=== PATIENT | male | born 1980 | race African-American/Black ===

== ENCOUNTER 2018-02-10 14:44 | Emergency (ER) | payer MEDICAID ==
[~2018-02-10 14:44] MED LIST: CITA10TA13 PO; OLAN15TA5 PO; OMEP20CA4 PO
== END 2018-02-10 15:49 | disposition left against medical advice (07) ==
LOC: EMS 14:44
DX: Z53.21 Procedure and treatment not carried out due to patient leaving prior to being seen by health care provider (principal)

== ENCOUNTER 2018-02-20 13:10 | Emergency (ER) | payer OTHER ==
[~2018-02-20] VITALS: Ht 180.3 cm; Wt 144.6 kg
[2018-02-20 16:02] VITALS: BP 152/89
[2018-02-22 07:27] LABS: HIV 1-2 SCREEN 4TH GEN W/RFLX Non Reactive (Non Reactive)
== END 2018-02-20 16:20 | disposition home or self-care (01) ==
LOC: EMS 13:10
DX: N50.9 Disorder of male genital organs, unspecified (principal); F19.10 Other psychoactive substance abuse, uncomplicated; L98.9 Disorder of the skin and subcutaneous tissue, unspecified; F17.210 Nicotine dependence, cigarettes, uncomplicated; K21.9 Gastro-esophageal reflux disease without esophagitis; F12.90 Cannabis use, unspecified, uncomplicated; F16.90 Hallucinogen use, unspecified, uncomplicated
CPT/HCPCS: 86592; 87389; 87491; 87591; 99284; 99406

== ENCOUNTER 2020-07-24 00:17 | Emergency (ER) | payer MEDICARE, OTHER ==
[~2020-07-24] VITALS: Ht 177.8 cm; Wt 100.0 kg
[2020-07-24] MEDS ORDERED: ALBU8HFA IH (00:23)
[2020-07-24] MEDS ORDERED: ONDANSETRON HCL 4 MG TABLET PO ONE (01:15)
[2020-07-24 01:16] VITALS: BP 137/88
== END 2020-07-24 01:41 | disposition home or self-care (01) ==
LOC: EMS 00:17
DX: R11.2 Nausea with vomiting, unspecified (principal); R06.02 Shortness of breath; F32.9 Major depressive disorder, single episode, unspecified; K21.9 Gastro-esophageal reflux disease without esophagitis; F12.90 Cannabis use, unspecified, uncomplicated; F17.210 Nicotine dependence, cigarettes, uncomplicated
CPT/HCPCS: 99283; Q0162

== ENCOUNTER 2020-10-20 01:45 | Emergency (ER) | payer MEDICARE, OTHER ==
[~2020-10-20] VITALS: Ht 182.9 cm; Wt 100.0 kg
[~2020-10-20 01:45] MED LIST changes: +ALBU8HFA IH
[2020-10-20 01:48] VITALS: BP 136/105
== END 2020-10-20 02:30 | disposition left against medical advice (07) ==
LOC: EMS 01:59
DX: R11.2 Nausea with vomiting, unspecified (principal); Z53.21 Procedure and treatment not carried out due to patient leaving prior to being seen by health care provider

== ENCOUNTER 2020-10-27 14:54 | Emergency (ER) | payer MEDICARE, OTHER ==
[~2020-10-27] VITALS: Ht 182.9 cm; Wt 100.0 kg
[2020-10-27] MEDS ORDERED: ACET-2080 PO (15:38)
[2020-10-27] MEDS ORDERED: ACETAMINOPHEN 500 MG TABLET PO ONE (15:45)
[2020-10-27 17:35] VITALS: BP 135/79
== END 2020-10-27 18:10 | disposition home or self-care (01) ==
LOC: EMS 14:54
DX: S63.502A Unspecified sprain of left wrist, initial encounter (principal); F32.9 Major depressive disorder, single episode, unspecified; K21.9 Gastro-esophageal reflux disease without esophagitis; F17.210 Nicotine dependence, cigarettes, uncomplicated; F12.90 Cannabis use, unspecified, uncomplicated; Y35.811A Legal intervention involving manhandling, law enforcement official injured, initial encounter; Y93.89 Activity, other specified; Y92.89 Other specified places as the place of occurrence of the external cause; Y99.8 Other external cause status

== ENCOUNTER 2021-03-24 01:02 | Emergency (ER) | payer MEDICARE, OTHER ==
[~2021-03-24] VITALS: Ht 185.4 cm; Wt 118.2 kg
[~2021-03-24 01:02] MED LIST changes: +ACET-2080 PO
[2021-03-24] MEDS ORDERED: DiphenhydrAMINE HCL 50 MG/ML VIAL IM ONE (03:30)
[2021-03-24] MEDS ORDERED: OLANZapine 5 MG TABLET PO ONE (03:30)
[2021-03-24] MEDS ORDERED: LORazepam 2 MG TABLET PO ONE (03:30)
[2021-03-24] MEDS ORDERED: HALOPERIDOL LACTATE 5 MG/ML VIAL IM ONE (03:30)
[2021-03-24] MEDS ORDERED: LORazepam 2 MG/ML VIAL IM ONE ×2 (03:30→04:15)
[2021-03-24 03:54] LABS: BASOPHILS % (AUTO) 0.6 % (0.0-2.0); EOSINOPHILS % (AUTO) 0.1 % (1.0-6.0); HEMATOCRIT 44.8 % (41-53); HEMOGLOBIN 14.6 g/dL (13.5-17.5); LYMPHOCYTES % (AUTO) 15.6 % (22.0-44.0); MEAN CORPUSCULAR HEMOGLOBIN 27.1 pg (26.0-34.0); MEAN CORPUSCULAR HGB CONC 32.5 G/dL (31.0-37.0); MEAN CORPUSCULAR VOLUME 83 fL (80-100); MONOCYTES # (AUTO) 1.1 K/uL (0.1-1.0); MONOCYTES % (AUTO) 8.4 % (2.0-9.0); NEUTROPHILS # (AUTO) 9.7 K/uL (1.8-7.7); NEUTROPHILS % (AUTO) 75.3 % (40.0-70.0); PLATELET COUNT (AUTO) 222 K/uL (150-450); RED BLOOD CELL COUNT(AUTO) 5.38 MIL/uL (4.50-5.90); RED CELL DISTRIBUTION WIDTH 13.7 % (11.5-14.5)
[2021-03-24 04:02] LABS: ANION GAP 10 mmol/L (8-16); CALCIUM, TOTAL 9.7 mg/dL (8.8-10.5); CARBON DIOXIDE 28 mmol/L (22-29); CHLORIDE 100 mmol/L (98-107); GLOMERULAR FILTR. RATE CALC > 60 mL/min (>60); GLUCOSE,RANDOM 104 mg/dL (70-110); POTASSIUM 3.4 mmol/L (3.5-5.1); SODIUM SERUM 138 mmol/L (136-145); UREA NITROGEN, BLOOD 28 mg/dL (7-18)
[2021-03-24 04:08] LABS: ALANINE AMINOTRANSFERASE 26 U/L (12-78); ALBUMIN 4.5 g/dL (3.4-5.0); ALKALINE PHOSPHATASE 91 U/L (46-116); ASPARTATE AMINOTRANSFERASE 21 U/L (15-37); BILIRUBIN,TOTAL 0.6 mg/dL (0.1-1.0); TOTAL PROTEIN, SERUM 7.3 g/dL (6.4-8.2)
[2021-03-24 06:10] LABS: COVID AG,FIA SOURCE NASOPHARYNGEAL
[2021-03-24 09:26] VITALS: BP 131/72
== END 2021-03-24 10:29 | disposition home or self-care (01) ==
LOC: EMS 01:06
DX: S30.1XXA Contusion of abdominal wall, initial encounter (principal); Z20.822 Contact with and (suspected) exposure to COVID-19; F20.9 Schizophrenia, unspecified; W19.XXXA Unspecified fall, initial encounter; Y93.89 Activity, other specified; Y92.89 Other specified places as the place of occurrence of the external cause; Y99.8 Other external cause status
CPT/HCPCS: 36415; 80053; 85025; 87426; 96372; 99285; G0480; J1200; J1630; J2060

== ENCOUNTER 2023-10-25 04:55 | Emergency (ER) | payer OTHER ==
[~2023-10-25] VITALS: Ht 182.9 cm; Wt 100.0 kg
[~2023-10-25 04:55] MED LIST changes: +ALBU18HF12 IH; -ALBU8HFA IH
[2023-10-25 05:02] VITALS: TEMP 97.7
[2023-10-25 06:25] VITALS: BP 135/88; PULSE 71; RESP 17
[2023-10-25] MEDS ORDERED: LORazepam 1 MG TABLET PO ONE (06:45)
[2023-10-25] MEDS ORDERED: MECL-226 PO (07:06)
== END 2023-10-25 07:14 | disposition home or self-care (01) ==
LOC: EMS 04:56
DX: H93.13 Tinnitus, bilateral (principal); F41.9 Anxiety disorder, unspecified; F32.A Depression, unspecified; F20.9 Schizophrenia, unspecified; F12.90 Cannabis use, unspecified, uncomplicated
CPT/HCPCS: 99283

== ENCOUNTER 2023-11-09 15:59 | Emergency (ER) | payer OTHER ==
[~2023-11-09] VITALS: Ht 182.9 cm; Wt 103.2 kg
[~2023-11-09 15:59] MED LIST changes: +MECL-226 PO
[2023-11-09 16:28] LABS: COVID AG,FIA SOURCE NASAL SWAB
[2023-11-09 17:03] LABS: INFLUENZA TYPE A NEGATIVE FOR TYPE A (NEGATIVE); INFLUENZA TYPE B NEGATIVE FOR TYPE B (NEGATIVE)
[2023-11-09 17:43] LABS: SARS-COV2 (COVID) ANTIGEN,FIA Positive (Negative)
[2023-11-09] MEDS ORDERED: IBUPROFEN 600 MG TABLET PO ONE (21:15)
[2023-11-09] MEDS ORDERED: GuaiFENesin/D-METHORPHAN [SUGAR-FREE] 200-20MG/10 ML SYRUP UDCUP PO ONE (21:15)
[2023-11-09] MEDS ORDERED: HYDROCODONE/ACETAMINOPHEN 5-325 MG TABLET PO ONE (21:15)
[2023-11-09 21:16] VITALS: BP 135/75; PULSE 87; RESP 16; TEMP 98.3
[2023-11-09] MEDS ORDERED: ALBU18HF12 IH (21:18)
[2023-11-09] MEDS ORDERED: IBUP-1554 PO (21:18)
[2023-11-09] MEDS ORDERED: HYDR-4723 PO (21:18)
[2023-11-09] MEDS ORDERED: GUAIFDM PO (21:18)
== END 2023-11-09 22:46 | disposition home or self-care (01) ==
LOC: EMS 16:01
DX: J20.9 Acute bronchitis, unspecified (principal); R07.89 Other chest pain; J45.909 Unspecified asthma, uncomplicated; F20.9 Schizophrenia, unspecified; F41.9 Anxiety disorder, unspecified; F32.A Depression, unspecified; K21.9 Gastro-esophageal reflux disease without esophagitis; F17.210 Nicotine dependence, cigarettes, uncomplicated; Z20.822 Contact with and (suspected) exposure to COVID-19
CPT/HCPCS: 87804; 99284; Z7502; Z7610